=== PATIENT | male | born 1950 | race Caucasian/White ===

== ENCOUNTER 2018-05-26 15:59 | Outpatient (REF) | payer MEDICARE, SELFPAY ==
[2018-05-26 19:51] LABS: ALT 28 U/L (12-78); AST 16 U/L (15-37); Albumin 3.5 g/dL (3.4-5.0); Alkaline Phosphatase 76 U/L (46-116); Anion Gap 10.9 mmol/L (3-11); BUN 19 mg/dL (7-18); Bilirubin, Total 0.3 mg/dL (0.2-1.0); CO2 26.1 mmol/L (21.0-32.0); CREATININE 1.14 mg/dL (0.70-1.30); Calcium 8.7 mg/dL (8.5-10.1); Chloride 105 mmol/L (98-107); Glucose 123 mg/dL (70-100); NT-proBNP 150 pg/mL; Sodium 142 mmol/L (136-145); Total Protein 6.5 g/dL (6.4-8.2)
[2018-05-26 20:17] LABS: HCT 40.7 % (40.0-50.0); HGB 13.7 g/dL (13.5-17.5); Mean Corp. HGB Concentration 33.7 g/dL (32.0-36.0); Mean Corpuscular Hemoglobin 31.8 pg (27.0-33.0); Mean Corpuscular Volume 94.4 fL (80-95); Mean Platelet Volume 11.9 fL (8.0-11.0); Platelet Count 202 x1000/uL (130-400); RBC 4.31 m/cumm (4.50-6.00); RBC Distribution Width 13.2 % (11.8-14.1); White Blood Cell Count 5.42 k/cumm (4.4-10.8)
== END 2018-05-26 16:19 ==
LOC: NCHCN 15:59
PROVIDERS: PCP Internal Medicine; Visit Provider Physician Assistant Medical
DX: R06.02 Shortness of breath (principal)
CPT/HCPCS: 80053; 85027; 83880

== ENCOUNTER 2020-01-21 09:56 | Outpatient (REF) | payer MEDICARE, SELFPAY ==
[2020-01-21 18:49] LABS: Abs Immature Grans 0.01 10^3/uL (0.0-0.06); Absolute Basophil Count 0.02 10^3/uL (0.0-0.2); Absolute Eosinophil Count 0.11 10^3/uL (0.0-0.7); Absolute Lymphocyte Count 0.93 10^3/uL (1.2-3.4); Absolute Monocyte Count 0.35 10^3/uL (0.1-0.8); Absolute Neutrophil Count 1.93 10^3/uL (1.2-6.7); Basophils % 0.6; Eosinophils % 3.3; HCT 42.4 % (40.0-50.0); Immature Grans % 0.3; Lymphocytes % 27.8; MCH 30.6 pg (27.0-33.0); MCV 92.8 fL (80-95); MPV 10.9 fL (8.0-11.0); Monocytes % 10.4; Neutrophils % 57.6; Nucleated RBC 0 %; Platelet Count 209 10^3/uL (130-400); RBC 4.57 10^6/uL (4.36-5.78); RDW 12.7 % (11.8-14.1); RDW-SD 43.3 fL; WBC 3.35 10^3/uL (4.4-10.8)
[2020-01-21 19:43] LABS: Hemoglobin A1C 6.1 % (3.8-5.6)
[2020-01-21 19:53] LABS: ALT 38 U/L (16-63); AST 20 U/L (15-37); Albumin 3.5 g/dL (3.4-5.0); Alkaline Phosphatase 58 U/L (46-116); Anion Gap 9.8 mmol/L (3-11); BUN 15 mg/dL (7-18); Bilirubin, Total 0.4 mg/dL (0.2-1.0); CO2 25.2 mmol/L (21.0-32.0); CREATININE 1.11 mg/dL (0.70-1.30); Calcium 8.5 mg/dL (8.5-10.1); Calculated LDL 107 mg/dL (<100); Chloride 107 mmol/L (98-107); Cholesterol 157 mg/dL (<200); Glucose 107 mg/dL (74-106); HDL Cholesterol 32 mg/dL (40-60); Potassium 4.1 mmol/L (3.5-5.1); Sodium 142 mmol/L (136-145); TSH (W/Ref FT4) 0.78 uIU/mL (0.36-3.74); Total Protein 6.7 g/dL (6.4-8.2); Triglyceride 93 mg/dL (<150)
== END 2020-01-21 10:16 ==
LOC: NCHCN 09:56
PROVIDERS: PCP Internal Medicine; Visit Provider Physician Assistant
DX: R73.03 Prediabetes (principal); I73.9 Peripheral vascular disease, unspecified; E66.9 Obesity, unspecified; I82.90 Acute embolism and thrombosis of unspecified vein; J44.9 Chronic obstructive pulmonary disease, unspecified
CPT/HCPCS: 80053; 80061; 83036; 84443; 85025

== ENCOUNTER 2021-03-09 17:11 | Outpatient (REF) | payer MEDICARE, SELFPAY ==
[2021-03-09 19:43] LABS: Anion Gap 8.1 mmol/L (3-11); BUN 19 mg/dL (7-18); CO2 27.9 mmol/L (21.0-32.0); Calcium 8.8 mg/dL (8.5-10.1); Chloride 106 mmol/L (98-107); Glucose 100 mg/dL (74-106); Sodium 142 mmol/L (136-145)
[2021-03-12 09:58] LABS: PSA, Screening 3.8 ng/mL (0.0-4.5)
== END 2021-03-09 17:12 | disposition home or self-care (01) ==
LOC: NCHCN 17:11
PROVIDERS: PCP Internal Medicine; Visit Provider Physician Assistant
DX: Z80.42 Family history of malignant neoplasm of prostate (principal); R73.03 Prediabetes; Z12.5 Encounter for screening for malignant neoplasm of prostate
CPT/HCPCS: 80048; 84153

== ENCOUNTER 2021-09-11 17:51 | Outpatient (REF) | payer MEDICARE, SELFPAY ==
[2021-09-20 08:32] LABS: Testosterone, Free 14.2 ng/dL (3.28-12.2); Testosterone, Total 490 ng/dL (240-950)
== END 2021-09-11 17:52 | disposition home or self-care (01) ==
LOC: NCHCN 17:51
PROVIDERS: PCP Internal Medicine; Visit Provider Physician Assistant
DX: N52.9 Male erectile dysfunction, unspecified (principal); G47.8 Other sleep disorders; Z80.42 Family history of malignant neoplasm of prostate
CPT/HCPCS: 84402; 84403

== ENCOUNTER 2022-03-15 10:56 | Outpatient (REF) | payer MEDICARE, SELFPAY ==
[2022-03-15 20:19] LABS: Anion Gap 8.5 mmol/L (3-11); BUN 14 mg/dL (7-18); CO2 27.5 mmol/L (21.0-32.0); CREATININE 1.1 mg/dL (0.70-1.30); Calcium 8.9 mg/dL (8.5-10.1); Chloride 102 mmol/L (98-107); Estimated GFR 72.22 (mL/min/1.73m2); Glucose 93 mg/dL (74-106); Potassium 4.2 mmol/L (3.5-5.1); Sodium 138 mmol/L (136-145)
[2022-03-15 21:26] LABS: Hemoglobin A1C 5.7 % (<5.7)
== END 2022-03-15 10:57 | disposition home or self-care (01) ==
LOC: NCHCN 10:56
PROVIDERS: PCP Internal Medicine; Visit Provider Physician Assistant
DX: R73.03 Prediabetes (principal); E66.9 Obesity, unspecified
CPT/HCPCS: 80048; 83036

== ENCOUNTER 2023-03-14 16:08 | Outpatient (REF) | payer MEDICARE, SELFPAY ==
[2023-03-14 18:54] LABS: HCT 41.3 % (40.0-50.0); HGB 13.8 g/dL (13.5-17.5); MCH 31.7 pg (27.0-33.0); MCHC 33.4 % (32.0-36.0); MCV 95 fL (80-95); MPV 11.5 fL (8.0-11.0); Platelet Count 193 10^3/uL (130-400); RBC 4.35 10^6/uL (4.36-5.78); RDW 12.5 % (11.8-14.1); RDW-SD 43.8 fL; WBC 4.25 10^3/uL (4.4-10.8)
[2023-03-14 19:31] LABS: ALT 26 U/L (16-63); AST 17 U/L (15-37); Albumin 3.9 g/dL (3.4-5.0); Alkaline Phosphatase 68 U/L (46-116); Anion Gap 10.6 mmol/L (3-11); BUN 18 mg/dL (7-18); Bilirubin, Total 0.4 mg/dL (0.2-1.0); CO2 25.4 mmol/L (21.0-32.0); Calcium 9.4 mg/dL (8.5-10.1); Chloride 103 mmol/L (98-107); Estimated GFR 80.47 (mL/min/1.73m2); Glucose 103 mg/dL (74-106); Magnesium 2.2 mg/dL (1.8-2.4); Potassium 3.9 mmol/L (3.5-5.1); Sodium 139 mmol/L (136-145); Total Protein 7.3 g/dL (6.4-8.2); Vitamin B12 313 pg/mL (193-986)
== END 2023-03-14 16:09 | disposition home or self-care (01) ==
LOC: NCHCN 16:08
PROVIDERS: PCP Internal Medicine; Visit Provider Physician Assistant
DX: R73.03 Prediabetes (principal); G62.9 Polyneuropathy, unspecified; I73.9 Peripheral vascular disease, unspecified; Z86.39 Personal history of other endocrine, nutritional and metabolic disease
CPT/HCPCS: 80053; 85027; 82607; 83735

== ENCOUNTER 2023-06-04 18:41 | Outpatient (REF) | payer MEDICARE, SELFPAY | END 2023-06-04 18:42 | disposition home or self-care (01) | LOC: NCHCN 18:41 | PROVIDERS: PCP Internal Medicine; Visit Provider Physician Assistant | DX: N40.0 Benign prostatic hyperplasia without lower urinary tract symptoms (principal) | CPT/HCPCS: 84153 ==

== ENCOUNTER 2024-05-28 15:10 | Outpatient (REF) | payer MEDICARE, SELFPAY ==
[2024-05-28 20:21] LABS: Hemoglobin A1C 5.7 % (<5.7)
[2024-05-28 20:31] LABS: ALT 18 U/L (16-63); AST 21 U/L (15-37); Albumin 3.7 g/dL (3.4-5.0); Alkaline Phosphatase 70 U/L (46-116); Anion Gap 9.2 mmol/L (3-11); BUN 17 mg/dL (7-18); Bilirubin, Total 0.45 mg/dL (0.2-1.0); CO2 26.8 mmol/L (21.0-32.0); CREATININE 1.3 mg/dL (0.70-1.30); Calculated LDL 101 mg/dL (<100); Chloride 106 mmol/L (98-107); Cholesterol 168 mg/dL (<200); Estimated GFR 58.01 (mL/min/1.73m2); Glucose 101 mg/dL (74-106); HDL Cholesterol 52 mg/dL (40-60); Potassium 4.2 mmol/L (3.5-5.1); Sodium 142 mmol/L (136-145); Total Protein 7.3 g/dL (6.4-8.2); Triglyceride 77 mg/dL (<150)
[2024-05-31 09:55] LABS: PSA, Screening 10.2 ng/mL (<=6.5)
== END 2024-05-28 15:11 | disposition home or self-care (01) ==
LOC: NCHCN 15:10
PROVIDERS: PCP Internal Medicine; Visit Provider Physician Assistant
DX: E66.9 Obesity, unspecified (principal); R73.03 Prediabetes; Z80.42 Family history of malignant neoplasm of prostate
CPT/HCPCS: 80053; 80061; 84153; 83036

== ENCOUNTER → 2024-06-22 08:27 | Outpatient (BNVA) | payer MEDICARE, SELFPAY | PROVIDERS: PCP Internal Medicine; Referring Provider Internal Medicine; Visit Provider Nurse Practitioner Gerontology | DX: N40.1 Benign prostatic hyperplasia with lower urinary tract symptoms (principal); N13.8 Other obstructive and reflux uropathy; R33.8 Other retention of urine; R97.20 Elevated prostate specific antigen [PSA]; Z80.42 Family history of malignant neoplasm of prostate | CPT/HCPCS: 51798; 81003; 99205 ==

== ENCOUNTER 2024-08-23 04:21 | Outpatient (CLI) | payer MEDICARE, SELFPAY | END 2024-08-23 04:22 | disposition home or self-care (01) | PROVIDERS: PCP Internal Medicine; Visit Provider Nurse Practitioner Gerontology | DX: N40.1 Benign prostatic hyperplasia with lower urinary tract symptoms (principal); N13.8 Other obstructive and reflux uropathy; R33.9 Retention of urine, unspecified; Z80.42 Family history of malignant neoplasm of prostate; R97.20 Elevated prostate specific antigen [PSA] | CPT/HCPCS: 36415; 84153 ==

== ENCOUNTER → 2024-08-30 13:50 | Outpatient (BNVA) | payer MEDICARE, SELFPAY | PROVIDERS: PCP Internal Medicine; Referring Provider Internal Medicine; Visit Provider Nurse Practitioner Gerontology | DX: N40.0 Benign prostatic hyperplasia without lower urinary tract symptoms (principal); N40.1 Benign prostatic hyperplasia with lower urinary tract symptoms; N13.8 Other obstructive and reflux uropathy; R33.8 Other retention of urine; R97.20 Elevated prostate specific antigen [PSA]; Z80.42 Family history of malignant neoplasm of prostate | CPT/HCPCS: 51798; 99213 ==

== ENCOUNTER → 2024-12-02 13:09 | Outpatient (BNVA) | payer MEDICARE, SELFPAY | PROVIDERS: PCP Internal Medicine; Referring Provider Internal Medicine; Visit Provider Nurse Practitioner Gerontology | DX: N40.1 Benign prostatic hyperplasia with lower urinary tract symptoms (principal); N13.8 Other obstructive and reflux uropathy; R33.9 Retention of urine, unspecified; Z80.42 Family history of malignant neoplasm of prostate; R97.20 Elevated prostate specific antigen [PSA]; Z79.01 Long term (current) use of anticoagulants | CPT/HCPCS: 99215; 51798 ==

== ENCOUNTER → 2024-12-14 10:30 | Outpatient (BNVA) | payer MEDICARE, SELFPAY | PROVIDERS: PCP Internal Medicine; Referring Provider Internal Medicine; Visit Provider Urology | DX: C61 Malignant neoplasm of prostate (principal) | CPT/HCPCS: 55700; 76872 ==

== ENCOUNTER 2024-12-14 11:40 | Outpatient (REF) | payer MEDICARE, SELFPAY ==
--- NOTE | 2024-12-14 11:20 | PROST_PTH ---
PATIENT: Jesse Macias LOC: N U#:[id number] AGE/SX: 74/M ROOM: RE12/14/[address]: Chris Hanson MD : 1950 BED: DIS: 12/14/2024 SPEC #: [id number] RECD: 12/14/24 13:01 STATUS: [facility] #: [id number] ALANIS: 12/14/24 11:[address]: Chris Hanson DEPT: Surgical Specimen RECD BY: Priscilla Beebe ENTERED: 12/14/24 13:03 SP TYPE: PROST OTHR DR: Vin Graf Tissues: 1 - PROSTATE NEEDLE BIOPSY 2 - PROSTATE NEEDLE BIOPSY 3 - PROSTATE NEEDLE BIOPSY 4 - PROSTATE NEEDLE BIOPSY 5 - PROSTATE NEEDLE BIOPSY 6 - PROSTATE NEEDLE BIOPSY 7 - PROSTATE NEEDLE BIOPSY 8 - PROSTATE NEEDLE BIOPSY 9 - PROSTATE NEEDLE BIOPSY 10 - PROSTATE NEEDLE BIOPSY 11 - PROSTATE NEEDLE BIOPSY 12 - PROSTATE NEEDLE BIOPSY Procedures: GROSS AND MICRO LEVEL 4 Comments: [id number]
== END 2024-12-14 11:41 | disposition home or self-care (01) ==
LOC: LBN 11:40
PROVIDERS: PCP Internal Medicine; Visit Provider Urology
DX: C61 Malignant neoplasm of prostate (principal); R97.20 Elevated prostate specific antigen [PSA]
CPT/HCPCS: 88305

== ENCOUNTER → 2024-12-28 10:51 | Outpatient (BNVA) | payer MEDICARE, SELFPAY | PROVIDERS: PCP Internal Medicine; Referring Provider Internal Medicine; Visit Provider Urology | DX: C61 Malignant neoplasm of prostate (principal) | CPT/HCPCS: 99215 ==

== ENCOUNTER → 2025-04-12 07:34 | Outpatient (BNVA) | payer MEDICARE, SELFPAY | PROVIDERS: PCP Internal Medicine; Referring Provider Internal Medicine; Visit Provider Urology | DX: C61 Malignant neoplasm of prostate (principal) | CPT/HCPCS: 99212 ==

== ENCOUNTER 2025-06-03 17:00 | Outpatient (REF) | payer MEDICARE, SELFPAY ==
[2025-06-03 19:50] LABS: ALT 14 U/L (10-49); AST 16 U/L (<34); Albumin 4.4 g/dL (3.2-5.0); Alkaline Phosphatase 60 U/L (46-116); Anion Gap 10.6 mmol/L (3-11); BUN 21 mg/dL (9-23); Bilirubin, Total 0.4 mg/dL (0.2-1.2); CO2 24.4 mmol/L (20.0-31.0); Calcium 8.9 mg/dL (8.3-10.6); Chloride 109 mmol/L (98-107); Glucose 84 mg/dL (74-106); Potassium 4.0 mmol/L (3.5-5.1); Sodium 144 mmol/L (136-145); Total Protein 7.1 g/dL (5.7-8.2)
== END 2025-06-03 17:01 | disposition home or self-care (01) ==
LOC: NCHCN 17:00
PROVIDERS: PCP Internal Medicine; Visit Provider Physician Assistant
DX: I25.10 Atherosclerotic heart disease of native coronary artery without angina pectoris (principal)
CPT/HCPCS: 80053